=== PATIENT | female | born 1990 | race Caucasian/White ===

== ENCOUNTER 2020-03-17 16:22 | Outpatient (REF) | payer OTHER, SELFPAY ==
--- NOTE | 2020-03-17 | XR_ITS ---
EXAMINATION: XR CHEST CLINICAL INFORMATION: Shortness of breath. Covid positive. COMPARISON: Chest x-ray 02/01/2018 TECHNIQUE: 2 views of the chest were obtained. FINDINGS: No significant abnormality is noted involving the heart, lungs, mediastinum, bony thorax or soft tissues. XR/XR chest 2V IMPRESSION: Unremarkable examination.
== END 2020-03-17 16:23 | disposition home or self-care (01) ==
LOC: HO.HMGCX 16:22
PROVIDERS: PCP Internal Medicine; Visit Provider Internal Medicine
DX: R06.02 Shortness of breath (principal)
CPT/HCPCS: 71046

== ENCOUNTER 2020-06-09 11:26 | Outpatient (REF) | payer OTHER, SELFPAY ==
--- NOTE | 2020-06-09 | US_ITS ---
EXAMINATION: US RETROPERITONEAL COMPLETE (RENAL) CLINICAL INFORMATION: Frequency of micturition. COMPARISON: None TECHNIQUE: Real-time imaging of the kidneys and bladder. FINDINGS: RIGHT KIDNEY: 9.5 x 4.4 x 5.6 cm (SAG x AP x TRV). The kidney is normal in size, contour, and echogenicity. Renal cortical thickness is normal. No calculi or focal parenchymal lesions. No hydronephrosis. LEFT KIDNEY: 10.4 x 5.9 x 5.4 cm (SAG x AP x TRV). The kidney is normal in size, contour, and echogenicity. Renal cortical thickness is normal. No calculi or focal parenchymal lesions. No hydronephrosis. BLADDER: Well distended and normal. Bilateral ureteral jets are demonstrated. Prevoid bladder volume is 559 mL. Postvoid bladder volume is 26 mL. ADDITIONAL FINDINGS: Incidental finding of a small left ovarian cysts measuring 2.4 x 2.5 x 2.3 cm. US/US retroperitoneal comp IMPRESSION: Unremarkable bilateral renal ultrasound. Small left ovarian 2.5 cm cyst.
== END 2020-06-09 11:27 | disposition home or self-care (01) ==
LOC: HO.HMGCX 11:26
PROVIDERS: Visit Provider Internal Medicine
DX: R35.0 Frequency of micturition (principal); R39.9 Unspecified symptoms and signs involving the genitourinary system
CPT/HCPCS: 76770

== ENCOUNTER 2020-06-14 08:34 | Outpatient (REF) | payer OTHER, SELFPAY ==
--- NOTE | ~2020-06-14 | US_ITS ---
EXAMINATION: PELVIC ULTRASOUND CLINICAL INFORMATION: Pelvic pain COMPARISON: Previous exam August 2018 TECHNIQUE: Transabdominal and transvaginal pelvic ultrasound was performed. Transvaginal exam was performed for better visualization of the uterus and ovaries. FINDINGS: The uterus is anteverted and measures 8.5 x 3.7 x 4.7 cm in dimension. There is an IUD in the uterus in satisfactory position. This does not appear thickened. No focal uterine lesion is seen. Cervix is unremarkable. The right ovary is upper normal in size and measures 3.6 x 2.7 x 2.9 cm, volume 15 mL. The left ovary is enlarged, measures 4 x 3.3 x 4.1 cm, volume 29 mL, and contains a 3.5 x 3 x 3.3 cm simple cyst. There is no fluid in the pelvis. US/US transvaginal IMPRESSION: IUD in the uterus in satisfactory position. 3.5 x 3 x 3.3 cm simple left ovarian cyst.
--- NOTE | ~2020-06-14 | US_ITS ---
EXAMINATION: PELVIC ULTRASOUND CLINICAL INFORMATION: Pelvic pain COMPARISON: Previous exam August 2018 TECHNIQUE: Transabdominal and transvaginal pelvic ultrasound was performed. Transvaginal exam was performed for better visualization of the uterus and ovaries. FINDINGS: The uterus is anteverted and measures 8.5 x 3.7 x 4.7 cm in dimension. There is an IUD in the uterus in satisfactory position. This does not appear thickened. No focal uterine lesion is seen. Cervix is unremarkable. The right ovary is upper normal in size and measures 3.6 x 2.7 x 2.9 cm, volume 15 mL. The left ovary is enlarged, measures 4 x 3.3 x 4.1 cm, volume 29 mL, and contains a 3.5 x 3 x 3.3 cm simple cyst. There is no fluid in the pelvis. US/US pelvic complete IMPRESSION: IUD in the uterus in satisfactory position. 3.5 x 3 x 3.3 cm simple left ovarian cyst.
== END 2020-06-14 08:35 | disposition home or self-care (01) ==
LOC: HO.HMGCX 08:34
PROVIDERS: PCP Internal Medicine; Visit Provider Emergency Medicine
DX: R10.2 Pelvic and perineal pain (principal)
CPT/HCPCS: 76830; 76856

== ENCOUNTER → 2021-10-26 08:44 | Outpatient (BNVA) | payer OTHER, SELFPAY | PROVIDERS: PCP Internal Medicine; Visit Provider Advanced Practice Midwife | DX: Z30.432 Encounter for removal of intrauterine contraceptive device (principal); Z31.69 Encounter for other general counseling and advice on procreation | CPT/HCPCS: 58301 ==

== ENCOUNTER 2021-12-19 09:07 | Outpatient (REF) | payer OTHER, SELFPAY | END 2021-12-19 09:08 | disposition home or self-care (01) | LOC: HO.LAB 09:07 | PROVIDERS: Visit Provider Advanced Practice Midwife | DX: Z01.419 Encounter for gynecological examination (general) (routine) without abnormal findings (principal) | CPT/HCPCS: 88142 ==

== ENCOUNTER → 2022-03-29 08:02 | Outpatient (BNVA) | payer OTHER, SELFPAY | PROVIDERS: Visit Provider Obstetrics & Gynecology | DX: N83.9 Noninflammatory disorder of ovary, fallopian tube and broad ligament, unspecified (principal) | CPT/HCPCS: 99212 ==

== ENCOUNTER 2022-08-10 15:02 | Outpatient (REF) | payer OTHER, SELFPAY ==
[2022-08-10 15:21] LABS: MANUAL DIFF FLAG NO
[2022-08-10 15:36] LABS: Basophils Percent Auto 0.4 % (0-2); Eosinophils Absolute Auto 0.2 X10*3/uL (0.0-0.4); Eosinophils Percent Auto 2.4 % (0-4); Hematocrit 40.2 % (37.0-47.0); Hemoglobin 13.7 g/dl (12.0-16.0); Imm Gran Abs Auto 0.03 X10*3/uL (0.00-0.03); Imm Gran Pct Auto 0.4 % (0.0-0.4); Lymphocytes Absolute Auto 1.4 X10*3/uL (1.2-4.9); Lymphocytes Percent Auto 19.1 % (20-40); Mean Corpuscular HGB Conc 34.1 g/dl (31.0-35.0); Mean Corpuscular Hemoglobin 32.1 pg (27.0-33.0); Mean Corpuscular Volume 94.1 fL (80.0-98.0); Mean Platelet Volume 11.4 fL (9.4-12.3); Monocytes Absolute Auto 0.4 X10*3/uL (0.1-1.2); Monocytes Percent Auto 5.1 % (2-11); Neutrophils Absolute Auto 5.2 x10*3/uL (2.0-8.3); Neutrophils Percent Auto 72.6 % (45-73); Platelet Count 152 X10*3/uL (160-400); Red Blood Count 4.27 X10*6/uL (4.20-5.50); Red Cell Distribution Width 11.9 % (11.0-16.0); White Blood Count 7.2 X10*3/uL (4.8-10.8)
[2022-08-10 16:05] LABS: Alanine Aminotransferase 27 U/L (0-31); Albumin Level 4.2 g/dL (3.5-5.0); Alkaline Phosphatase 55 U/L (39-117); Aspartate Amino Transferase 25 U/L (5-31); Bilirubin Direct < 0.2 mg/dL (0.0-0.5); Bilirubin Total 0.4 mg/dL (0.0-1.0); C Reactive Protein 0.11 mg/dL (< or = 0.50); Total Protein 6.5 g/dL (6.5-8.0)
[2022-08-10 16:19] LABS: Erythrocyte Sedimentation Rate 2 MM/HR (0-20)
[2022-08-10 16:21] LABS: TSH reflex Free T4 0.99 uIU/mL (0.32-4.0)
[2022-08-13 02:04] LABS: Immunoglobulin A 193 mg/dL (47-310)
[2022-08-16 15:24] LABS: Endomysial IgA Antibody Negative (Negative)
[2022-08-17 23:59] LABS: Gliadin Deamidated IgA Ab 1.2 U/mL; Gliadin Deamidated IgG Ab 15.1 U/mL; Transglutaminase Ab IgG <1.0 U/mL; Transglutaminase IgA 2.9 U/mL
== END 2022-08-10 15:03 | disposition home or self-care (01) ==
LOC: HO.LAB 15:02
PROVIDERS: PCP Internal Medicine; Visit Provider Internal Medicine
DX: R19.7 Diarrhea, unspecified (principal); K62.5 Hemorrhage of anus and rectum
CPT/HCPCS: 36415; 80076; 82784; 84443; 85025; 85652; 86140; 86231; 86258; 86364

== ENCOUNTER 2022-08-14 12:43 | Day surgery (SDC) | payer OTHER, SELFPAY ==
[2022-08-14 13:03] VITALS: BMI 24.5
[2022-08-14 13:10] LABS: UPreg QC Valid YES; Urine Pregnancy NEGATIVE (NEGATIVE)
[2022-08-14] MEDS: Lactated Ringers 1,000 ML 50 ML IVCONT (13:10)
[2022-08-14 13:17] VITALS: BP 105/60; PULSE 80; RESP 18; TEMP 36.7; O2SAT 97
--- NOTE | 2022-08-14 14:17 | HO.ANESPROP2 ---
[facility] Active Problems Active Problems: All Active Problems (Updated 03/29/22 @ 08:22 by Oliver Juarez MD) Problems with ovulation (Acute) Thrombocytopenia (Acute) Past Medical History Medical History History of dysuria History of shingles History of urinary frequency Hx of acne Hx of acute cystitis Hx of eczema Hx of low back pain Hx of migraines Hx of thrombocytopenia Family History Family History Mother Hx of breast cancer Hx of cancer of lung Maternal Grandfather History of heart attack Maternal Aunt History of heart attack History of diabetes mellitus Family history of problems with anesthesia: No Surgical History Surgical History Hx of hand surgery History of Problems with Anesthesia: No Social History Social History Household Members Other:: fiance Housing: Apartment Alcohol intake: current Alcohol intake frequency: holidays/special occasions only Alcohol type: wine and hard liquor Patient Tobacco Use Status: Never used Tobacco Are you DNR?: No Advance Directives: No Advance Directives Information Provided: Yes Nutrition Risks: No Nutritional Risk FDLMP: about two weeks ago Current occupational status: employed 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 Sexual orientation: Straight/Heterosexual Gender identity: Female Meds Allergies Allergy/AdvReac Type Severity Reaction Status Date / Time Seasonal Allergies Allergy Mild Sneezing Verified 03/29/22 08:09 amoxicillin [AMOXICILLIN] Allergy Unknown HIVES Verified 03/29/22 08:09 penicillin G [PENICILLIN G] Allergy Unknown HIVES Verified 03/29/22 08:09 penicillin V Allergy Unknown hives Verified 03/29/22 08:09 Penicillins [PENICILLINS] Allergy Unknown RASH Verified 03/29/22 08:09 Sulfa (Sulfonamide AdvReac Unknown vomiting Verified 03/29/22 08:09 Antibiotics) Active Medications: Current Medications Sodium Biphosphate/Sodium Phosphate (Sodium Phosphate,[place]-Dibasic 133 Ml Enema) 133 ml SD ONCE PRN PRN Reason: Poor Colonoscopy Prep Results Home Medications Medication Instructions Recorded Confirmed Last Taken Type hydrocortisone 1 % topical cream appl 07/02/20 07/02/20 Unknown History (Cortisone (hydrocortisone)) loratadine 10 mg tablet 10 mg PO DAILY 07/02/20 07/02/20 Unknown History omeprazole 20 mg capsule,delayed 20 mg PO DAILY 08/11/22 08/11/22 Unknown History release sertraline 50 mg tablet 50 mg PO DAILY 08/11/22 08/11/22 Unknown History Exam Exam Date and Time: August 14, 2022 1417 Height,Weight and Vital Signs: Height 5 ft 4 in Weight 64.957 kg Last Vital Signs Temp 98.1 F 08/14/22 13:17 Pulse 80 08/14/22 13:17 Resp 18 08/14/22 13:17 BP 105/60 08/14/22 13:17 Pulse Ox 97 08/14/22 13:17 O2 Del Method Room Air 08/14/22 13:17 Pertinent Lab Results Pertinent Lab Results: Laboratory Tests 08/14/22 13:00 Urine Test NEGATIVE Airway Mallampati Class: II TM Dist: >3cm Neck ROM: Full Heart: rrr Lungs: cta Assessment and Plan Assessment Anesthesia Assessment: Anesthesia Plan Discussed and Chart Reviewed Final Anesthetic Review Family History of Problems with Anesthesia: No History of Problems with Anesthesia: No NPO: Yes ASA Class: II Final Preanesthetic Review: No Changes in Pt Med Stat, Meds/Allgs Chart Reviewed and Consent Obtained/Reviewed Patient Risk: Intermediate Procedure Risk: Intermediate Anesthetic Plan Anesthetic Plan: MAC: Disposition: Standard PACU
[2022-08-14 15:38] VITALS: BP 108/66; PULSE 80; RESP 16; TEMP 37; O2SAT 99
--- NOTE | 2022-08-14 15:41 | PM.OP ---
Brief Operative Note Date of Service: 08/14/22 Pre-op diagnosis: GERD, Diarrhea, Rectal bleeding Post-op diagnosis: other (Minimal hiatal hernia, R/O celiac disease, colon polyp, R/O microscopic colitis) Procedure: EGD with biopsies, Colonoscopy to the cecum and TI with biopsies, and hot snare polypectomy with placement of 2 Resolution clips between 15-20cm. Surgeon: Nadir Ayon Anesthesia: MAC Was an Wet Milling Wheel Operator used for this Procedure?: No Estimated blood loss (mL): 2.0 Pathology: other (A. Descending duodenum B. Gastric antrum C. EG Junction at 38cm D. Terminal ileum E. Ascending colon F. Descending colon) Condition: stable Disposition: PACU
[2022-08-14 15:53] VITALS: BP 114/72; PULSE 89; RESP 16; TEMP 37; O2SAT 100
--- NOTE | 2022-08-15 01:47 | OP_ITS ---
DATE OF SERVICE: 08/14/2022 SURGEON: Nadir Ayon MD INDICATIONS: The patient presents for evaluation of gastroesophageal reflux, diarrhea, and hematochezia. Full consent has been obtained from her for this, including risks of bleeding and perforation. PREOPERATIVE DIAGNOSIS: POSTOPERATIVE DIAGNOSIS: PROCEDURE PERFORMED: ESTIMATED BLOOD LOSS: COMPLICATIONS: ANESTHESIA: Medication used, monitored anesthesia care. ASSISTANTS: SPECIMENS: PREOPERATIVE DIAGNOSES: Gastroesophageal reflux, abdominal pain, diarrhea, hematochezia. POSTOPERATIVE DIAGNOSES: Gastroesophageal reflux, abdominal pain, diarrhea, hematochezia, minimal hiatal hernia, rule out celiac disease, colon polyp, rule out microscopic colitis, internal hemorrhoids. PROCEDURES PERFORMED: Esophagogastroduodenoscopy with biopsies, and colonoscopy to the cecum and terminal ileum with biopsies, and hot snare polypectomy with placement of two Resolution clips. DESCRIPTION OF PROCEDURE: The patient was placed in the left lateral decubitus position. The Olympus video gastroscope was passed in the posterior oropharynx and upper esophagus under direct vision. The scope was passed slowly to the distal esophagus. The gastroesophageal junction had some very minimal irregularity, but no evidence of esophagitis nor Kimball's esophagus. The scope entered the stomach. There is a minimal hiatal hernia. The scope was advanced to the pylorus and the duodenum was cannulated to the descending portion. The duodenum including the bulb appeared normal without mass or ulceration. Biopsies were obtained from the second and third portions of duodenum. The scope was withdrawn back in the stomach. The gastric antrum and body appeared normal with good peristalsis. Biopsies were obtained from the antrum. The scope was retroflexed visualizing the proximal stomach carefully which appeared normal, without any sign of mass or ulceration. The scope was straightened and withdrawn back in the esophagus. Biopsies were obtained at the EG junction at 38 cm. Proximal to that, the esophageal mucosa appeared normal. The scope was withdrawn from the patient. She was turned around for the colonoscopy. The digital rectal exam revealed no abnormalities. The Olympus video pediatric colonoscope was entered into the rectum and advanced easily to the cecum. Once in the cecum, I did identify normal appearing cecal pouch with the appendiceal orifice and a normal appearing ileocecal valve. The terminal ileum was cannulated and appeared normal. Biopsies were obtained. The scope was withdrawn back in the colon. The entire cecum and ileocecal valve appeared normal. The scope was slowly withdrawn assessing all mucosal surfaces carefully. Preparation was excellent. I did not visualize any sign of colitis nor angiodysplasia. Random biopsies were obtained in the ascending and descending colon. At between 15 and 20 cm was a flat, but raised approximately 10 to 12 mm polyp which appeared to be probably hyperplastic or possibly serrated. This was removed by hot snare polypectomy, but basically the tissue was cauterized and therefore no specimen was obtained. Two Resolution clips were applied with good deployment and good hemostasis. No other polyps were visualized in the colon or rectum. In the rectum, the scope was retroflexed visualizing some minimal internal hemorrhoids, but no other pathology. The rectal mucosa appeared normal. The scope was straightened and withdrawn from the patient. She tolerated both procedures well and was returned to the recovery area in stable condition. IMPRESSION: 1. Minimal hiatal hernia. 2. Rule out celiac disease. 3. Colon polyp. 4. Rule out microscopic colitis. 5. Internal hemorrhoids. PLAN: The results of the biopsies will be checked. She was advised to continue her omeprazole for the reflux. She was advised to use dicyclomine as needed for abdominal cramps and discomfort. She was advised to see me by the Fall for a followup visit. She was advised not to use any aspirin nor NSAIDs for one week. She does have an abdominal ultrasound scheduled for later this month and she was reminded to keep that appointment. I would recommend another colonoscopy in 10 years. MD MEL Aiken/KETURAH / [id number] MTDD
== END 2022-08-14 16:25 | disposition home or self-care (01) ==
PROVIDERS: Anesthesiology; PCP Internal Medicine; Visit Provider Internal Medicine
PROC: (CPT 45385; principal; 2022-08-14 14:00)
DX: K92.1 Melena (principal); R19.7 Diarrhea, unspecified; R10.13 Epigastric pain; K63.5 Polyp of colon; K64.8 Other hemorrhoids; K21.9 Gastro-esophageal reflux disease without esophagitis; K44.9 Diaphragmatic hernia without obstruction or gangrene
CPT/HCPCS: 45385; 43239; 81025; 88305; 88342

== ENCOUNTER 2022-12-13 09:02 | Outpatient (AMB) | payer OTHER, SELFPAY ==
--- NOTE | 2022-12-13 09:08 | A.OFFVIS_ITS ---
Intake Vital Signs 12/13/22 09:11 Height 5 ft 4 in Weight 143 lb BMI 24.5 BP 120/80 Intake Visit Reasons: trouble getting Allergies Seasonal Allergies Allergy (Mild, Verified 12/13/22 09:12) Sneezing amoxicillin [AMOXICILLIN] Allergy (Unknown, Verified 12/13/22 09:12) HIVES penicillin G [PENICILLIN G] Allergy (Unknown, Verified 12/13/22 09:12) HIVES penicillin V Allergy (Unknown, Verified 12/13/22 09:12) hives Penicillins [PENICILLINS] Allergy (Unknown, Verified 12/13/22 09:12) RASH Sulfa (Sulfonamide Antibiotics) Adverse Reaction (Unknown, Verified 12/13/22 09:12) vomiting Is last menstrual period known: Yes Last menstrual period: 12/03/22 HPI HPI Comments History of Present Illness Details Presenting complaining of inability to conceive for the last year, has been checking her LH ovulation surge and has been ovulating last 10 months. Menstrual cycles are regular with no dysmenorrhea. The patient's partner history of retrograde ejaculation PFSH Medical History History of dysuria History of shingles History of urinary frequency Hx of acne Hx of acute cystitis Hx of eczema Hx of low back pain Hx of migraines Hx of thrombocytopenia Surgical History Hx of hand surgery Family History Mother Hx of breast cancer Hx of cancer of lung Maternal Grandfather History of heart attack Maternal Aunt History of heart attack History of diabetes mellitus Social History Household Members Other:: fiance Housing: Apartment Alcohol intake: current Alcohol intake frequency: holidays/special occasions only Alcohol type: wine and hard liquor Patient Tobacco Use Status: Never used Tobacco Current occupational status: employed 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 Sexual orientation: Straight/Heterosexual Gender identity: Female Female Reproductive History Menstrual Age of Menarche: 16 Date of last menstrual period: 12/03/22 Review of Systems Const All systems reviewed & are unremarkable except as noted in HPI and below Reports as per HPI and Reports no additional complaints GI Reports no additional complaints Reports no additional complaints Physical Exam Vital Signs: Last Vital Signs BP 120/80 12/13/22 09:11 BMI result Body Mass Index 24.5 Assessment & Plan Assessment & Plan (1) Infertility, female: Code(s): N97.9 - Female infertility, unspecified Plan: Discussed with the patient the patient causes of infertility including male and female factors, the workup including LH ovulation test which has been done over the last few months and positive, semen analysis for the patient's partner order given to the patient and will schedule day 8 hysterosalpingogram. All questions answered, the patient verbalized understanding Orders: Orders [place] hysterosalpingography Today N97.9 - Female infertility, unspecified Coding Level of Care Code Est Pt Level 3 (56468) Diagnoses Infertility, female N97.9
[2022-12-13 09:11] VITALS: BP 120/80; BMI 24.5
== END 2022-12-13 09:37 | disposition home or self-care (01) ==
LOC: HO.HWS 09:02
PROVIDERS: PCP Internal Medicine; Visit Provider Obstetrics & Gynecology
DX: N97.9 Female infertility, unspecified (principal)
CPT/HCPCS: 99213

== ENCOUNTER → 2022-12-13 09:02 | Outpatient (BNVA) | payer OTHER, SELFPAY | PROVIDERS: PCP Internal Medicine; Visit Provider Obstetrics & Gynecology | DX: N97.9 Female infertility, unspecified (principal) | CPT/HCPCS: 99212 ==

== ENCOUNTER 2023-01-17 13:50 | Outpatient (AMB) | payer OTHER, SELFPAY ==
[2023-01-17 13:52] VITALS: BP 112/66; BMI 24.2
--- NOTE | 2023-01-17 13:52 | A.OFFVIS_ITS ---
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 Intake Note: no concerns Director Operations Broadcast Required: No Information Interpreted: non-clinical & clinical Shop Blacksmith: Shop Blacksmith Present (Veronica Jeff MONICA) Accompanied by: Self / Same As Patient Allergies Seasonal Allergies Allergy (Mild, Verified 01/17/23 13:55) Sneezing amoxicillin [AMOXICILLIN] Allergy (Unknown, Verified 01/17/23 13:55) HIVES penicillin G [PENICILLIN G] Allergy (Unknown, Verified 01/17/23 13:55) HIVES penicillin V Allergy (Unknown, Verified 01/17/23 13:55) hives Penicillins [PENICILLINS] Allergy (Unknown, Verified 01/17/23 13:55) RASH Sulfa (Sulfonamide Antibiotics) Adverse Reaction (Unknown, Verified 01/17/23 13:55) vomiting Is last menstrual period known: Yes Last menstrual period: 12/29/22 HPI HPI Comments History of Present Illness Details Presenting for annual exam. No complaints. Partner semen analysis came back with the following abnormalities: Low volume, low percentage of motile sperms, low percentage of vitals per parents, and a low normal morphology Last Pap was in 12/26 was negative, no HPV done PFSH Medical History History of shingles Hx of thrombocytopenia Hx of low back pain History of dysuria Hx of acne History of urinary frequency Hx of acute cystitis Hx of migraines Hx of eczema Surgical History Hx of hand surgery Family History Mother Hx of breast cancer Hx of cancer of lung Maternal Grandfather History of heart attack Maternal Aunt History of heart attack History of diabetes mellitus Social History Household Members Other:: fiance Housing: Apartment Alcohol intake: current Alcohol intake frequency: holidays/special occasions only Alcohol type: wine and hard liquor Patient Tobacco Use Status: Never used Tobacco Current occupational status: employed 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 Sexual orientation: Straight/Heterosexual Gender identity: Female Female Reproductive History Menstrual Age of Menarche: 16 Date of last menstrual period: 12/29/22 Total pregnancies: 0 Date of last pap smear: 12/19/21 Review of Systems Const All systems reviewed & are unremarkable except as noted in HPI and below Card Reports as per HPI Resp Reports as per HPI GI Reports as per HPI and Reports no additional complaints Reports as per HPI Physical Exam Const General: cooperative, healthy appearing and comfortable Chest Chest palpation & inspection: normal inspection of the chest and normal palpation of entire chest wall Breast/axilla inspection: normal inspection of the breasts and normal inspection of the axillae Breast/axilla palpation: normal palpation of the breasts, normal palpation of the axillae and no axillary lymphadenopathy Resp Effort & Inspection: normal respiratory effort Auscultation: clear to auscultation bilaterally Percussion: percussion normal Cardio Palpation: normal PMI Rate: regular rate Rhythm: regular rhythm Heart sounds: no murmurs and no rubs Peripheral pulses: Peripheral pulses 2+ throughout GI Inspection: Yes normal to inspection Palpation (GI): Soft to palpation, nontender, no guarding, not rigid and No hepatosplenomegaly present Percussion: Yes normal to percussion Auscultation: normal bowel sounds Rectal Exam - Female: deferred General: Yes bladder normal to palpation External Female Exam: No lesion Speculum Exam - Vagina: normal appearance of the vagina, normal palpation, normal vaginal discharge and not erythematous Speculum Exam - Cervix: normal appearance of the cervix and normal palpation Bimanual exam- vagina & uterus: normal bimanual exam, normal palpation, uterine size normal, bladder normal to palpation, consistency normal and normal palpation Bimanual Exam- Adnexa, other: normal adnexae, no masses and no tenderness Assessment & Plan Assessment & Plan (1) Well woman exam: Code(s): Z01.419 - Encounter for gynecological examination (general) (routine) without abnormal findings Plan: Cotesting not indicated this year. Counseled the patient about the recommended dietary allowance of 1000 mg of Calcium & 600 IU of vitamin D. The patient was instructed to perform monthly self-breast exams and to schedule an annual exam in a year; All questions answered and the patient verbalized understanding. Instructed the patient to schedule annual exam in a year (2) Infertility, female: Code(s): N97.9 - Female infertility, unspecified Plan: Discussed with patient the results of partner's semen analysis, recommended urology visit, the patient partner has already an appointment with Urology, hysterosalpingogram is scheduled in 2 weeks, and will refer the patient to reproductive endocrinology [facility]. All questions answered, the patient verbalized understanding agreed with the plan. Orders: Referrals Reproductive Endocrinology N97.9 - Female infertility, unspecified Coding Level of Care Code Est Pt Prev Care 18-39y(22700) Diagnoses Well woman exam Z01.419 Infertility, female N97.9
== END 2023-01-17 14:54 | disposition home or self-care (01) ==
PROVIDERS: PCP Internal Medicine; Visit Provider Obstetrics & Gynecology
DX: Z01.419 Encounter for gynecological examination (general) (routine) without abnormal findings (principal); N97.9 Female infertility, unspecified
CPT/HCPCS: 99395

== ENCOUNTER → 2023-01-17 13:50 | Outpatient (BNVA) | payer OTHER, SELFPAY | PROVIDERS: PCP Internal Medicine; Visit Provider Obstetrics & Gynecology ==

== ENCOUNTER 2023-02-14 08:46 | Outpatient (REF) | payer OTHER, SELFPAY | END 2023-02-14 08:47 | disposition home or self-care (01) | LOC: HO.MRI 08:46 | PROVIDERS: PCP Internal Medicine; Visit Provider Family Medicine | DX: G43.111 Migraine with aura, intractable, with status migrainosus (principal) | CPT/HCPCS: 70553; A9585 ==

== ENCOUNTER 2023-03-07 09:29 | Outpatient (REF) | payer OTHER, SELFPAY ==
--- NOTE | ~2023-03-07 | US_ITS ---
EXAMINATION: US ABDOMEN COMPLETE CLINICAL INFORMATION: Epigastric pain. COMPARISON: Ultrasound kidneys and bladder 06/09/2020. TECHNIQUE: Real-time imaging of the abdominal viscera. FINDINGS: PANCREAS: Normal. ABDOMINAL AORTA: The proximal, mid, and distal segments are normal in caliber. INFERIOR VENA CAVA: Visualized portions are normal. LIVER: Normal. The liver is normal in size. The liver contour is normal. Parenchymal echogenicity is normal. No focal hepatic lesion. There is no intrahepatic biliary duct dilatation seen. GALLBLADDER: Normal. The gallbladder is physiologically distended without evidence of stones, sludge, polyps, wall thickening or pericholecystic fluid. COMMON BILE DUCT: Normal in caliber measuring 0.5 cm in diameter. RIGHT KIDNEY: No hydronephrosis or focal parenchymal lesions. The kidney measures 9.4 cm in maximum dimension. At the interpolar aspect, a 5 mm nonobstructing calculus is seen. LEFT KIDNEY: Normal. No hydronephrosis. No renal calculi or focal parenchymal lesions. The kidney measures 9.9 cm in maximum dimension. SPLEEN: Normal. The spleen measures 8.3 cm in maximum dimension. FREE FLUID: None. US/US abdomen complete IMPRESSION: A 5 mm nonobstructing right renal calculus is seen. The examination is otherwise unremarkable.
== END 2023-03-07 09:30 | disposition home or self-care (01) ==
LOC: HO.US 09:29
PROVIDERS: PCP Internal Medicine; Visit Provider Internal Medicine
DX: R10.13 Epigastric pain (principal)
CPT/HCPCS: 76700

== ENCOUNTER 2023-03-27 13:02 | Outpatient (AMB) | payer OTHER, SELFPAY ==
--- NOTE | 2023-03-27 13:14 | A.OFFVIS_ITS ---
Intake Intake Visit Reasons: Hysterosalpingogram/ Radiology department Allergies Seasonal Allergies Allergy (Mild, Verified 01/17/23 13:55) Sneezing amoxicillin [AMOXICILLIN] Allergy (Unknown, Verified 01/17/23 13:55) HIVES penicillin G [PENICILLIN G] Allergy (Unknown, Verified 01/17/23 13:55) HIVES penicillin V Allergy (Unknown, Verified 01/17/23 13:55) hives Penicillins [PENICILLINS] Allergy (Unknown, Verified 01/17/23 13:55) RASH Sulfa (Sulfonamide Antibiotics) Adverse Reaction (Unknown, Verified 01/17/23 13:55) vomiting PFSH Medical History History of shingles Hx of thrombocytopenia Hx of low back pain History of dysuria Hx of acne History of urinary frequency Hx of acute cystitis Hx of migraines Hx of eczema Surgical History Hx of hand surgery Family History Mother Hx of breast cancer Hx of cancer of lung Maternal Grandfather History of heart attack Maternal Aunt History of heart attack History of diabetes mellitus Household Members Other:: fiance Housing: Apartment Alcohol intake: current Alcohol intake frequency: holidays/special occasions only Alcohol type: wine and hard liquor Patient Tobacco Use Status: Never used Tobacco Current occupational status: employed 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 Time-out for HSG procedure was done. Speculum was placed in patient's vagina, vagina and cervix were prepped with betadine. A tenaculum was applied to the cervix. A primed 5 Welsh HSG catheter was introduced into the cervix and balloon inflated. Speculum was removed. Contrast was injected under flouroscopy revealing a normal cavity and bilateral fill and spill. All instruments were removed from vagina and aftercare instructions were given. Instructions given to patient to call in case of fever above 100.4 severe abdominal/ pain, nausea and/or vomiting, heavy vaginal bleeding. This note was generated with a voice recognition program. Some errors may have been overlooked during the review of this note. Sometimes these errors may affect the content or meaning of a given sentence. [facility] [place] code: [id number] Results AMB Test Urine AMB Test Urine Negative Last Edit by Veronica Jeff CMA on 13:14 Results Reviewed Results Reviewed: Laboratory Last Values Tst Clinic Negative 03/27/23 13:13 Assessment & Plan Assessment & Plan (1) Infertility, female: Code(s): N97.9 - Female infertility, unspecified Orders: Orders AMB HCG Urine Test Today Z32.02 - Encounter for test, result negative [place] hysterosalpingography Today N97.9 - Female infertility, unspecified Coding Level of Care Code Procedure Only Diagnoses Infertility, female N97.9 CPT Codes Hysterosal[place]ography - [facility] [place]PT code: [id number] ([id number])
== END 2023-03-27 14:38 | disposition home or self-care (01) ==
LOC: HO.HWS 13:02
PROVIDERS: PCP Internal Medicine; Visit Provider Obstetrics & Gynecology
DX: N97.9 Female infertility, unspecified (principal); Z32.02 Encounter for pregnancy test, result negative
CPT/HCPCS: 58340

== ENCOUNTER 2023-03-27 13:14 | Outpatient (REF) | payer OTHER, SELFPAY ==
--- NOTE | ~2023-03-27 | FL_ITS ---
EXAMINATION: INJECTION FOR HYSTEROSALPINGOGRAM CLINICAL INFORMATION: Infertility COMPARISON: None available. TECHNIQUE: Intrauterine contrast injection was performed by MANAGER PLAN Dr. Juarez under fluoroscopy with the radiology physician periodicals library assistant present. FINDINGS: On the fluoroscopy images, there is a balloon inflated catheter within the uterine cavity. Initially, reflux resulted in the vagina-gram which demonstrated no abnormality. Positioning of the catheter corrected this problem. Contrast was then seen to opacify both the bilateral fallopian tubes with extravasation seen into the parametrium bilaterally. FLUOROSCOPY TIME: 1 minute 25 seconds DOSE AREA PRODUCT: 707 uGy-m2 (microgray-meter squared) FL/FL hysterosalpingography IMPRESSION: Patent left and right fallopian tubes. No obstruction. This procedure was performed by Panfilo Olvera PA-C, and supervised by Dr. Gottlieb
== END 2023-03-27 13:15 | disposition home or self-care (01) ==
LOC: HO.XRAY 13:14
PROVIDERS: PCP Internal Medicine; Visit Provider Obstetrics & Gynecology
DX: N97.9 Female infertility, unspecified (principal)
CPT/HCPCS: 58340; 74740; 81025

== ENCOUNTER → 2023-03-27 13:17 | Outpatient (BNV) | payer OTHER, SELFPAY | PROVIDERS: PCP Internal Medicine; Visit Provider Radiology Diagnostic Radiology | DX: N97.1 Female infertility of tubal origin (principal) | CPT/HCPCS: 74740 ==

== ENCOUNTER 2023-04-11 10:52 | Outpatient (AMB) | payer OTHER, SELFPAY ==
--- NOTE | 2023-04-11 11:15 | A.OFFVIS_ITS ---
Intake Vital Signs 04/11/23 11:17 BP 118/70 Intake Visit Reasons: follow up Allergies Seasonal Allergies Allergy (Mild, Verified 01/17/23 13:55) Sneezing amoxicillin [AMOXICILLIN] Allergy (Unknown, Verified 01/17/23 13:55) HIVES penicillin G [PENICILLIN G] Allergy (Unknown, Verified 01/17/23 13:55) HIVES penicillin V Allergy (Unknown, Verified 01/17/23 13:55) hives Penicillins [PENICILLINS] Allergy (Unknown, Verified 01/17/23 13:55) RASH Sulfa (Sulfonamide Antibiotics) Adverse Reaction (Unknown, Verified 01/17/23 13:55) vomiting HPI HPI Comments History of Present Illness Details Presenting post hysterosalpingogram for follow-up. The patient's partner and was seen by Urology and was started on Clomid with vitamin-E. The patient has an appointment with the reproductive endocrinology/infertility clinic and [facility] for a consult. No complaints PFSH Medical History History of shingles Hx of thrombocytopenia Hx of low back pain History of dysuria Hx of acne History of urinary frequency Hx of acute cystitis Hx of migraines Hx of eczema Surgical History Hx of hand surgery Family History Mother Hx of breast cancer Hx of cancer of lung Maternal Grandfather History of heart attack Maternal Aunt History of heart attack History of diabetes mellitus Social History Household Members Other:: fiance Housing: Apartment Alcohol intake: current Alcohol intake frequency: holidays/special occasions only Alcohol type: wine and hard liquor Patient Tobacco Use Status: Never used Tobacco Current occupational status: employed 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 Recommended for the patient to follow up with [facility]/infertility for further management. All questions answered, the patient verbalized understanding. Coding Level of Care Code Est Pt Level 3 (79317) Diagnoses Infertility, female N97.9
[2023-04-11 11:17] VITALS: BP 118/70
== END 2023-04-11 12:17 | disposition home or self-care (01) ==
PROVIDERS: PCP Internal Medicine; Visit Provider Obstetrics & Gynecology
DX: N97.9 Female infertility, unspecified (principal)
CPT/HCPCS: 99213

== ENCOUNTER → 2023-04-11 10:52 | Outpatient (BNVA) | payer OTHER, SELFPAY | PROVIDERS: PCP Internal Medicine; Visit Provider Obstetrics & Gynecology | DX: N97.9 Female infertility, unspecified (principal) | CPT/HCPCS: 99212 ==

== ENCOUNTER → 2024-01-03 11:57 | Outpatient (RCR) | payer OTHER, SELFPAY ==
[2020-07-02 09:09] VITALS: BP 110/67; PULSE 68; RESP 12; TEMP 36.7; O2SAT 98; BMI 25.7
--- NOTE | 2020-07-02 09:42 | PM.HEMONCCN ---
Subjective - Subjective Chief complaint: ConsuIt for Thrombocytopenia. Patient: new to practice Consult date: 07/02/20 Requesting Physician: Anibal. Primary Care Provider: Suman Zaidi MD Medical Summary: DIAGNOSIS: Thrombocytopenia. HPI - Consult Narrative Reason for consult: Consult for thrombocytopenia. Narrative: Madina Pedro is a pleasant 30 year old lady, in good general health. She had a bad attack of shingles back in January. Subsequently she was noted to have a low platelet count. I do not have those results however, Her CBC from 06/08/2020: WBC 6.2, HGB 14, HCT 41.4, MCV 3 96.1, PLT 86. She mentions that she and her boyfriend had COVID 19 back in March. In January, she had really bad episode of shingles, involving her left back and leg. ROS: She denies any easy bruising nor systemic bleeding. She does feel rather fatigued. She feels that she gets sick a lot. She denies any fever nor chills. Appetite is good. Her weight is stable. Sometimes she gets migraine headaches. Denies chest pain or trouble breathing. No cough nor sputum. She gets lower abdominal pain. No nausea vomiting nor heartburn. Bowels are working without any gross blood in it. She has increased frequency of micturition. She has lately felt pain in the right lower neck radiating into her upper arm for about 5 days. No other joint pain or muscle pain. Neurological: No complaints. Psychiatry: Depression. Dermatology: History of eczema. Denies any major past medical issues. No major surgeries. Family history: Mom had breast cancer. There is lung cancer diabetes and strokes on maternal side of the family. 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 She is dating. She has no children. Denies smoking. Drinks socially. Review of Systems - Constitutional Reports system reviewed and no additional complaints, except as documented - Eyes Reports system reviewed and no additional complaints, except as documented - ENT Reports system reviewed and no additional complaints, except as documented - Cardiovascular Reports system reviewed and no additional complaints, except as documented - Respiratory Reports no additional respiratory complaints - Gastrointestinal Reports system reviewed and no additional complaints, except as documented - Genitourinary Reports no additional female genitourinary complaints - Musculoskeletal Reports system reviewed and no additional complaints, except as documented - Integumentary/Breasts Skin/Breast: Reports no additional skin complaints - Neurologic Reports system reviewed and no additional complaints, except as documented - Psychiatric Reports system reviewed and no additional complaints, except as documented - Endocrine Reports no additional endocrine complaints - Hematologic/Lymphatic Reports system reviewed and no additional complaints, except as documented - Allergic/Immunologic Reports system reviewed and no additional complaints, except as documented [facility] Medical History: Medical History (Last Updated 07/02/20 @ 15:45 by Erica Mcclain) History of dysuria History of shingles History of urinary frequency Hx of acne Hx of acute cystitis Hx of eczema Hx of low back pain Hx of migraines Hx of thrombocytopenia Functional capacity: independent ambulation Patient : No Family History: Family History (Last Updated 07/02/20 @ 09:18 by Erica Mcclain) Mother Hx of breast cancer Hx of cancer of lung Maternal Grandfather History of heart attack Maternal Aunt History of heart attack History of diabetes mellitus Social History: Social History (Last Updated 07/02/20 @ 09:13 by Erica Mcclain) Alcohol History: Alcohol intake: current Alcohol History Details: Alcohol intake frequency: holiday/special occasion Alcohol type: wine Alcohol type: hard liquor Substance Use History: Use of substances other than those prescribed or required for medical reasons: No Nutrition Assessment: Patient : No Home Medications and Allergies Home Medications Medication Instructions Recorded Confirmed Type hydrocortisone [Cortisone appl 07/02/20 07/02/20 History (hydrocortisone)] levonorgestrel [Mirena] INTRAUTERINE 07/02/20 07/02/20 History loratadine 10 mg PO DAILY 07/02/20 07/02/20 History Allergies Allergy/AdvReac Type Severity Reaction Status Date / Time Seasonal Allergies Allergy Mild Sneezing Verified 07/02/20 08:41 amoxicillin [AMOXICILLIN] Allergy Unknown HIVES Unverified 01/22/20 18:21 penicillin G [PENICILLIN G] Allergy Unknown HIVES Unverified 01/22/20 18:21 penicillin V Allergy Unknown hives Verified 01/20/19 00:00 Penicillins [PENICILLINS] Allergy Unknown RASH Unverified 01/22/20 18:21 Sulfa (Sulfonamide AdvReac Unknown vomiting Verified 01/20/19 00:00 Antibiotics) Physical Exam Vital signs: Vital Signs Temp 98.1 F 07/02/20 09:09 Pulse 68 07/02/20 09:09 Resp 12 07/02/20 09:09 BP 110/67 07/02/20 09:09 Pulse Ox 98 07/02/20 09:09 Intake & Output 07/01/20 07/02/20 07/02/20 18:59 06:59 18:59 Other: Weight 68 kg [place] Weight in Grams 16437 Weight 68 kg - Constitutional Present: no acute distress, mild distress - Routine HEENT Exam Head: Present: normal inspection - Routine Neck Exam Present: supple - Routine Respiratory Exam Present: CTAB - Routine Cardiovascular Exam Cardiovascular: Present: RRR, S1, S2 - Routine Abdominal Exam Present: normal bowel sounds, nontender - Routine Rectal Exam Patient deferred: digital exam - Routine Skin Exam Present: intact - Routine Neurological Exam Present: alert, oriented X3 - Detailed Neurological Exam: Coma Scale Eye Opening: Spontaneous (4) Verbal Response: Oriented (5) - Routine Psychiatric Exam Present: normal mood Hem/Onc Consult Result - Labs CBC & Chem 7: 07/02/20 09:45 07/02/20 09:45 Assessment and Plan (1) Thrombocytopenia Status: Acute This is a pleasant 30-year-old lady, with thrombocytopenia dating back to about 6 months according to her. She had labs drawn back in 2019 at that time her platelets were in the normal range. DIFFERENTIAL DIAGNOSIS: 1. INFECTION RELATED: 1. A viral infection: She did have herpes zoster infection back in January. Other possibilities include hepatitis versus HIV. 2. DRUG-INDUCED: She is not on any medication that could be implicated. 3. COLLAGEN VASCULAR DISORDER: Rheumatoid arthritis versus lupus. 4. ITP: This is most likely. 5. MYELO INFILTRATIVE DISORDER: Myelodysplastic syndrome, lymphoma or multiple myeloma: However no clinical features to suggest it. Her white count and platelets are normal. That is reassuring. PLAN: I will proceed with further evaluation. Will recheck her CBC and a manual diff. Check the hepatitis profile and HIV:WNL. Check RA and MEGA: Negative. Check LDH: 174 and an SIEP: WNL. Will follow the platelet count over time. If it drops will consider a bone marrow exam for further evaluation. Will treat if the platelets drop below 50. In the meantime she was advised not to take aspirin and nonsteroidals. She will return in 1 month for a follow-up visit. She had platelet clumping reported. Platelet count is still 144,000. That is good news. She will return on Sunday to have platelets checked in a blue top tube. Thank you, .
--- NOTE | 2020-07-02 09:57 | MHC.HEMONCMA ---
Patient present for low platelet level consult. History was reviewed and patient had labs drawn.
[2020-07-02 10:13] LABS: MANUAL DIFF FLAG SCAN; PLT CLUMP 1; Red Cell Distribution Width 11.9 % (11.0-16.0); SCAN SMEAR FLAG 1
[2020-07-02 10:14] LABS: Basophils Percent Auto 0.9 % (0-2); Eosinophils Absolute Auto 0.1 X10*3/uL (0.0-0.4); Eosinophils Percent Auto 2.8 % (0-4); Hematocrit 44.9 % (37-47); Hemoglobin 14.8 g/dl (12.0-16.0); Imm Gran Abs Auto 0.03 X10*3/uL (0.00-0.03); Imm Gran Pct Auto 0.7 % (0.0-0.4); Lymphocytes Percent Auto 23.7 % (20-40); Mean Corpuscular Hemoglobin 31.6 pg (27.0-33.0); Mean Corpuscular Volume 95.9 fL (80-98); Monocytes Absolute Auto 0.3 X10*3/uL (0.1-1.2); Neutrophils Absolute Auto 2.9 X10*3/uL (2.0-8.3); Neutrophils Percent Auto 65.9 % (45-73); Red Blood Count 4.68 X10*6/uL (4.20-5.50); White Blood Count 4.4 X10*3/uL (4.8-10.8)
[2020-07-02 10:42] LABS: Alanine Aminotransferase 22 U/L (0-31); Albumin Level 4.6 g/dL (3.5-5.0); Alkaline Phosphatase 61 U/L (39-117); Anion Gap 11 (12-20); Aspartate Amino Transferase 20 U/L (5-31); Bilirubin Total 0.5 mg/dL (0.0-1.0); Blood Urea Nitrogen 13 mg/dL (9-16); Calcium 9.7 mg/dL (8.4-10.2); Carbon Dioxide 28 mmol/L (22-29); Chloride 104 mmol/L (96-108); Creatinine Clr Calc Pharmacy 99.2; Estimated Glomerular Filt Rate > 60; Glucose Random 72 mg/dL (60-115); Lactate Dehydrogenase 174 U/L (122-220); Potassium 4.3 mmol/L (3.3-5.1); Rheumatoid Factor < 15.0 IU/mL (<15.0); Sodium 139 mmol/L (135-145); Total Protein 7.3 g/dL (6.5-8.0)
[2020-07-02 11:00] LABS: Erythrocyte Sedimentation Rate 2 MM/HR (0-20)
[2020-07-02 12:27] LABS: SLIDE REVIEW VERIFIED
--- NOTE | 2020-07-02 16:18 | MHC.HEMONCMA ---
Called pcp office to request lab report for the last year.
[2020-07-04 14:02] LABS: Anti Nuclear Antibody Screen NEGATIVE (NEGATIVE)
[2020-07-05 08:16] LABS: HBsAGNum1 0.17 S/CO (0.00-0.99); Hepatitis B Surface Antigen Negative (Negative); ~HepC Num1 0.07 S/CO (0.00-0.79); ~Hepatitis C Antibody Nonreactive (Nonreactive)
[2020-07-05 08:33] LABS: HBS Num1 0.49 mIU/mL (0-7.99); HBc Num1 0.04 S/CO (0.00-0.79); HIV AB/AG Nonreactive (Nonreactive); HIV Num 1 0.09 S/CO (0.00-0.99); Hepatitis B Core Antibody Nonreactive (Nonreactive); ~Hepatitis B Surface Antibody NONREACTIVE (Nonreactive)
[2020-07-06 15:37] LABS: IgA 199 mg/dL (47-310); IgG 1096 mg/dL (600-1640); IgM 64 mg/dL (50-300)
[2020-07-30 09:09] VITALS: BP 107/68; PULSE 62; RESP 12; TEMP 36.6; O2SAT 99; BMI 24.3
--- NOTE | 2020-07-30 09:16 | P.PNHO_ITS ---
Medical Summary - Medical Summary Date of Service: 07/30/20 Chief complaint: F/U for: Thrombocytopenia. Medical Summary: DIAGNOSIS: Thrombocytopenia. Today's platelets: 186,000. Interval History Interval history: Madina Pedro is a pleasant 30 year old lady, here for a follow-up visit. She has been doing really well. Denies fatigability. ROS: She denies any easy bruising nor systemic bleeding. She does feel rather f atigued. She feels that she gets sick a lot. She denies any fever nor chills. Appetite is good. Her weight is stable. Sometimes she gets migraine headaches. Denies chest pain or trouble breathing. No cough nor sputum. She gets lower abdominal pain. No nausea vomiting nor heartburn. Bowels are working without any gross blood in it. She has increased frequency of micturition. She has lately felt pain in the right lower neck radiating into her upper arm for about 5 days. No other joint pain or muscle pain. Neurological: No complaints. Psychiatry: Depression. Dermatology: History of eczema. Previous history: She had a bad attack of shingles back in January. Subsequently she was noted to have a low platelet count. I do not have those results however, Her CBC from 06/08/2020: WBC 6.2, HGB 14, HCT 41.4, MCV 3 96.1, PLT 86. She mentions that she and her boyfriend had COVID 19 back in March. In January, she had really bad episode of shingles, involving her left back and leg. Denies any major past medical issues. No major surgeries. Family history: Mom had breast cancer. There is lung cancer diabetes and strokes on maternal side of the family. 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 She is dating. She has no children. Denies smoking. Drinks socially. Review of Systems - Constitutional Reports no additional constitutional complaints - Eyes Reports no additional eye complaints - ENT Reports no additional ear, nose, mouth, and throat complaints - Cardiovascular Reports no additional cardiovascular complaints - Respiratory Reports no additional respiratory complaints - Gastrointestinal Reports no additional gastrointestinal complaints - Genitourinary Reports no additional female genitourinary complaints - Musculoskeletal Reports no additional musculoskeletal complaints - Integumentary/Breasts Skin/Breast: Reports no additional skin complaints - Neurologic Reports no additional neurologic complaints - Psychiatric Reports no additional psychiatric complaints - Endocrine Reports no additional endocrine complaints - Hematologic/Lymphatic Reports no additional hematologic/lymphatic complaints - Allergic/Immunologic Reports no additional allergic/immunologic complaints [facility] Medical History: Medical History (Last Reviewed 07/30/20 @ 09:09 by Erica Mcclain) History of dysuria History of shingles History of urinary frequency Hx of acne Hx of acute cystitis Hx of eczema Hx of low back pain Hx of migraines Hx of thrombocytopenia Functional capacity: independent ambulation Patient : No Family History: Family History (Last Reviewed 07/30/20 @ 09:10 by Erica Mcclain) Mother Hx of breast cancer Hx of cancer of lung Maternal Grandfather History of heart attack Maternal Aunt History of heart attack History of diabetes mellitus Social History: Social History (Last Reviewed 07/30/20 @ 09:10 by Erica Mcclain) Alcohol History: Alcohol intake: current Alcohol History Details: Alcohol intake frequency: holiday/special occasion Alcohol type: wine Alcohol type: hard liquor Substance Use History: Use of substances other than those prescribed or required for medical reasons : No Nutrition Assessment: Patient : No Oncology Screenings - ECOG Performance Status ECOG Performance Status: 0 Home Medications and Allergies Home Medications Medication Instructions Recorded Confirmed Type hydrocortisone [Cortisone appl 07/02/20 07/02/20 History (hydrocortisone)] levonorgestrel [Mirena] INTRAUTERINE 07/02/20 07/02/20 History loratadine 10 mg PO DAILY 07/02/20 07/02/20 History Allergies Allergy/AdvReac Type Severity Reaction Status Date / Time Seasonal Allergies Allergy Mild Sneezing Verified 07/02/20 08:41 amoxicillin [AMOXICILLIN] Allergy Unknown HIVES Unverified 01/22/20 18:21 penicillin G [PENICILLIN G] Allergy Unknown HIVES Unverified 01/22/20 18:21 penicillin V Allergy Unknown hives Verified 01/20/19 00:00 Penicillins [PENICILLINS] Allergy Unknown RASH Unverified 01/22/20 18:21 Sulfa (Sulfonamide AdvReac Unknown vomiting Verified 01/20/19 00:00 Antibiotics) Exam Vital signs: Vital Signs Temp 98 F 07/30/20 09:09 Pulse 62 07/30/20 09:09 Resp 12 07/30/20 09:09 BP 107/68 07/30/20 09:09 Pulse Ox 99 07/30/20 09:09 Intake & Output 07/29/20 07/30/20 07/30/20 18:59 06:59 18:59 Other: Weight 64.3 kg Weight in Grams 38069 Weight 64.3 kg Body Mass Index 24.3 - Constitutional Present: no acute distress, mild distress - Routine HEENT Exam Head: Present: normal inspection Eye: Present: normal appearance ENT: Present: mucous membranes moist - Routine Neck Exam Present: full ROM - Routine Respiratory Exam Present: CTAB - Routine Cardiovascular Exam Cardiovascular: Present: RRR, S1, S2 - Routine Abdominal Exam Present: normal bowel sounds, nontender - Routine Rectal Exam Patient deferred: digital exam - Routine Extremities Exam Present: nontender - Routine Back/Spine/Pelvis Exam Back/Spine: Present: full ROM - Routine Skin Exam Present: intact - Routine Neurological Exam Present: alert, oriented X3 - Detailed Neurological Exam: Coma Scale Eye Opening: Spontaneous (4) - Routine Psychiatric Exam Present: normal affect Data - Labs CBC & Chem 7: 07/30/20 09:24 07/30/20 09:24 Labs: 07/02/20 09:45 MEGA Reflex Titer and Pattern Routine Complete Blood Count Auto Diff Routine Comprehensive Met. Panel Routine Erythrocyte Sedimentation Rate Routine HIV Ab/Ag Routine Hepatitis B,C Profile Routine Immunofixation Pnl, Serum Routine LDH [Lactate Dehydrogenase] Routine Rheumatoid Factor Routine SLIDE REVIEW Routine Laboratory Last Values WBC 4.4 X10*3/uL (4.8-10.8) L 07/02/20 09:45 RBC 4.68 X10*6/uL (4.20-5.50) 07/02/20 09:45 Hgb 14.8 g/dl (12.0-16.0) 07/02/20 09:45 Hct 44.9 % (37-47) 07/02/20 09:45 MCV 95.9 fL (80-98) 07/02/20 09:45 MCH 31.6 pg (27.0-33.0) 07/02/20 09:45 MCHC 33.0 g/dl (31.0-35.0) 07/02/20 09:45 RDW 11.9 % (11.0-16.0) 07/02/20 09:45 Plt Count TNP 07/02/20 09:45 MPV TNP 07/02/20 09:45 Immature Gran % (Auto) 0.7 % (0.0-0.4) H 07/02/20 09:45 Neut % (Auto) 65.9 % (45-73) 07/02/20 09:45 Lymph % (Auto) 23.7 % (20-40) 07/02/20 09:45 [place] % (Auto) 6.0 % (2-11) 07/02/20 09:45 Eos % (Auto) 2.8 % (0-4) 07/02/20 09:45 Baso % (Auto) 0.9 % (0-2) 07/02/20 09:45 Lymph # (Auto) 1.0 X10*3/uL (1.2-4.9) L 07/02/20 09:45 [place] # (Auto) 0.3 X10*3/uL (0.1-1.2) 07/02/20 09:45 Eos # (Auto) 0.1 X10*3/uL (0.0-0.4) 07/02/20 09:45 Baso # (Auto) 0.0 X10*3/uL (0.0-0.2) 07/02/20 09:45 Abs Immat Gran (auto) 0.03 X10*3/uL (0.00-0.03) 07/02/20 09:45 Absolute Neuts (auto) 2.9 X10*3/uL (2.0-8.3) 07/02/20 09:45 Absolute Nucleated RBC 0.000 X10*3/uL (0.0-0.012) 07/02/20 09:45 Nucleated RBC % (auto) 0.0 /100WBC (0.0-0.2) 07/02/20 09:45 Smear Tech's Comments VERIFIED 07/02/20 09:45 ESR 2 MM/HR (0-20) 07/02/20 09:45 Sodium 139 mmol/L (135-145) 07/02/20 09:45 Potassium 4.3 mmol/L (3.3-5.1) 07/02/20 09:45 Chloride 104 mmol/L (96-108) 07/02/20 09:45 Carbon Dioxide 28 mmol/L (22-29) 07/02/20 09:45 Anion Gap 11 (12-20) L 07/02/20 09:45 BUN 13 mg/dL (9-16) 07/02/20 09:45 Creatinine 0.80 mg/dL (0.5-1.4) 07/02/20 09:45 Estim Creat Clear Calc 99.2 07/02/20 09:45 Estimated GFR > 60 07/02/20 09:45 Random Glucose 72 mg/dL (60-115) 07/02/20 09:45 Calcium 9.7 mg/dL (8.4-10.2) 07/02/20 09:45 Total Bilirubin 0.5 mg/dL (0.0-1.0) 07/02/20 09:45 AST 20 U/L (5-31) 07/02/20 09:45 ALT 22 U/L (0-31) 07/02/20 09:45 Alkaline Phosphatase 61 U/L (39-117) 07/02/20 09:45 Lactate Dehydrogenase 174 U/L (122-220) 07/02/20 09:45 Total Protein 7.3 g/dL (6.5-8.0) 07/02/20 09:45 Albumin 4.6 g/dL (3.5-5.0) 07/02/20 09:45 IgG Total 1096 mg/dL (600-1640) 07/02/20 09:45 IgA Total 199 mg/dL (47-310) 07/02/20 09:45 IgM 64 mg/dL (50-300) 07/02/20 09:45 WILLIAM Interpretation SEE NOTE 07/02/20 09:45 Rheumatoid Factor < 15.0 IU/mL (<15.0) 07/02/20 09:45 MEGA Screen NEGATIVE (NEGATIVE) 07/02/20 09:45 MEGA Titer TNP 07/02/20 09:45 MEGA Titer 2 TNP 07/02/20 09:45 MEGA Titer 3 TNP 07/02/20 09:45 MEGA Pattern TNP 07/02/20 09:45 MEGA Pattern 2 TNP 07/02/20 09:45 MEGA Pattern 3 TNP 07/02/20 09:45 Hep Bs Antigen Negative (Negative) 07/02/20 09:45 Hep Bs Antibody NONREACTIVE (Nonreactive) 07/02/20 09:45 Hep B Core Total Ab Nonreactive (Nonreactive) 07/02/20 09:45 Hepatitis C Ab (EIA) Nonreactive (Nonreactive) 07/02/20 09:45 HIV 1&2 Ab/P24 Ag 4thGn Nonreactive (Nonreactive) 07/02/20 09:45 Progress Note: A/P (1) Thrombocytopenia Status: Acute Assessment and plan: This is a pleasant 30-year-old lady, with thrombocytopenia dating back to about 6 months according to her. She had labs drawn back in 2019 at that time her platelets were in the normal range. DIFFERENTIAL DIAGNOSIS: 1. INFECTION RELATED: 1. A viral infection: She did have herpes zoster infectio n back in January. Other possibilities include hepatitis versus HIV. 2. DRUG-INDUCED: She is not on any medication that could be implicated. 3. COLLAGEN VASCULAR DISORDER: Rheumatoid arthritis versus lupus. 4. ITP: This is most likely. 5. MYELO INFILTRATIVE DISORDER: Myelodysplastic syndrome, lymphoma or multiple myeloma: However no clinical features to suggest it. Her white count and demetra telets are normal. That is reassuring. I proceeded with further evaluation. l rechecked her CBC and a manual diff. Platelet clumps were noted. However the platelet count was still 144,000. Checked the hepatitis profile and HIV:WNL. Check RA and MEGA: Negative. Check LDH: 174 and an SIEP: WNL. She is doing very well. Her platelet count is actually normal today: 186,000. It was checked in a blue top tube to avoid effect of clumping, however that was 193,000 as well. PLAN: Will follow the platelet count over time. If it drops will consider a bone marrow exam for further evaluation. Will treat if the platelets drop below 50. In the meantime she was advised not to take aspirin and nonsteroidals. She will return in 3 months for a follow-up visit. Thank you, . Additional CC's: Suman Zaidi. - Time Spent With Patient Total time spent is greater than 50% in coordination of care (as documented) at patient's floor/unit and/or counseling patient: 25 - 35 minutes
[2020-07-30 09:25] LABS: MANUAL DIFF FLAG NO
[2020-07-30 09:45] LABS: Basophils Percent Auto 0.8 % (0-2); Eosinophils Absolute Auto 0.1 X10*3/uL (0.0-0.4); Eosinophils Percent Auto 3.3 % (0-4); Hematocrit 42.9 % (37-47); Hemoglobin 14.1 g/dl (12.0-16.0); Imm Gran Abs Auto 0.01 X10*3/uL (0.00-0.03); Imm Gran Pct Auto 0.3 % (0.0-0.4); Lymphocytes Percent Auto 24.8 % (20-40); Mean Corpuscular HGB Conc 32.9 g/dl (31.0-35.0); Mean Corpuscular Hemoglobin 31.7 pg (27.0-33.0); Mean Corpuscular Volume 96.4 fL (80-98); Mean Platelet Volume 10.8 fL (9.4-12.3); Monocytes Absolute Auto 0.3 X10*3/uL (0.1-1.2); Monocytes Percent Auto 7.2 % (2-11); Neutrophils Absolute Auto 2.5 X10*3/uL (2.0-8.3); Neutrophils Percent Auto 63.6 % (45-73); Platelet Count 186 X10*3/uL (160-400); Red Blood Count 4.45 X10*6/uL (4.20-5.50); Red Cell Distribution Width 11.8 % (11.0-16.0); White Blood Count 3.9 X10*3/uL (4.8-10.8)
[2020-07-30 09:51] LABS: Platelet Count (Citrate) 193 X10*3/uL (150-310)
[2020-07-30 10:06] LABS: Alanine Aminotransferase 12 U/L (0-31); Albumin Level 4.2 g/dL (3.5-5.0); Alkaline Phosphatase 54 U/L (39-117); Anion Gap 13 (12-20); Aspartate Amino Transferase 17 U/L (5-31); Bilirubin Total 0.6 mg/dL (0.0-1.0); Blood Urea Nitrogen 9 mg/dL (9-16); Carbon Dioxide 26 mmol/L (22-29); Chloride 106 mmol/L (96-108); Creatinine Clr Calc Pharmacy 95.1; Estimated Glomerular Filt Rate > 60; Glucose Random 83 mg/dL (60-115); Potassium 4.4 mmol/L (3.3-5.1); Sodium 141 mmol/L (135-145); Total Protein 6.6 g/dL (6.5-8.0)
--- NOTE | 2020-07-30 10:39 | MHC.HEMONCMA ---
Pt presents to f/u on thombocytopenia. History reviewed and labs drawn. Pt to return in a months.
== END | disposition home or self-care (01) ==
LOC: HO.ONC 07-02 09:01
PROVIDERS: PCP Internal Medicine; Referring Provider Internal Medicine; Visit Provider Internal Medicine Medical Oncology
DX: D69.6 Thrombocytopenia, unspecified (principal)
CPT/HCPCS: 36415; 80053; 82784; 83615; 85025; 85652; 86038; 86039; 86334; 86431; 86704; 86706; 86803; 87340; 87389; 99204; 99214

== ENCOUNTER 2024-01-15 08:21 | Outpatient (REF) | payer OTHER, SELFPAY ==
[2024-01-15 14:05] LABS: MANUAL DIFF FLAG NO
[2024-01-15 14:25] LABS: Basophils Percent Auto 0.4 % (0-2); Eosinophils Absolute Auto 0.1 X10*3/uL (0.0-0.4); Eosinophils Percent Auto 2.6 % (0-4); Hematocrit 41.4 % (37.0-47.0); Hemoglobin 14.4 g/dl (12.0-16.0); Imm Gran Abs Auto 0.01 X10*3/uL (0.00-0.03); Imm Gran Pct Auto 0.2 % (0.0-0.4); Lymphocytes Absolute Auto 1.3 X10*3/uL (1.2-4.9); Lymphocytes Percent Auto 27.7 % (20-40); Mean Corpuscular HGB Conc 34.8 g/dl (31.0-35.0); Mean Corpuscular Hemoglobin 32.2 pg (27.0-33.0); Mean Corpuscular Volume 92.6 fL (80.0-98.0); Monocytes Absolute Auto 0.3 X10*3/uL (0.1-1.2); Monocytes Percent Auto 5.5 % (2-11); Neutrophils Percent Auto 63.6 % (45-73); Platelet Count 203 X10*3/uL (160-400); Red Blood Count 4.47 X10*6/uL (4.20-5.50); Red Cell Distribution Width 11.9 % (11.0-16.0); White Blood Count 4.7 X10*3/uL (4.8-10.8)
[2024-01-15 14:41] LABS: Alanine Aminotransferase 20 U/L (0-31); Albumin Level 4.5 g/dL (3.5-5.0); Alkaline Phosphatase 57 U/L (39-117); Anion Gap 12 (12-20); Aspartate Amino Transferase 19 U/L (5-31); Bilirubin Total 0.6 mg/dL (0.0-1.0); Blood Urea Nitrogen 11 mg/dL (9-16); Calcium 9.5 mg/dL (8.4-10.2); Carbon Dioxide 26 mmol/L (22-29); Chloride 105 mmol/L (96-108); Estimated Glomerular Filt Rate > 60; Glucose Random 72 mg/dL (60-115); Iron 166 mcg/dL (30-160); Percent Iron Saturation 60 % (15-50); Potassium 3.5 mmol/L (3.3-5.1); Sodium 139 mmol/L (135-145); Total Iron Binding Capacity 275 mcg/dL (228-428); Total Protein 7.5 g/dL (6.5-8.0); Unsaturated Iron Binding 109 ug/dL
[2024-01-15 14:57] LABS: TSH reflex Free T4 1.29 uIU/mL (0.32-4.0); Vitamin D 25-OH Total 72.3 ng/mL (>30)
[2024-01-15 15:02] LABS: Folate 17.7 ng/mL (> or = 4.0); Vitamin B12 697 pg/mL (200-900)
== END 2024-01-15 08:22 | disposition home or self-care (01) ==
LOC: HO.CHCLDS 08:21
PROVIDERS: Visit Provider Internal Medicine
DX: R53.83 Other fatigue (principal)
CPT/HCPCS: 36415; 80053; 82306; 82607; 82746; 83540; 84443; 85025

== ENCOUNTER 2024-01-19 16:49 | Emergency (ER) | payer OTHER, SELFPAY ==
--- NOTE | ~2024-01-19 | CT_ITS ---
EXAMINATION: CT HEAD WITHOUT CONTRAST CT CERVICAL SPINE WITHOUT CONTRAST CLINICAL INFORMATION: Fall. EtOH. Altered mental status. Neck trauma. COMPARISON: None available. TECHNIQUE: Contiguous axial imaging was performed from the skull base to vertex without intravenous administration of contrast. Contiguous axial imaging was performed from the upper chest through the skull base without intravenous administration of contrast. Coronal and sagittal reformats were obtained at the acquisition workstation. This CT examination was performed using dose optimization techniques as appropriate, variously including the following: *Automated exposure control. *Adjustment of mA and/or kV according to patient size (this includes techniques or standardized protocols for targeted exams where dose is matched to indication/reason for exam; i.e. extremities or head). *Use of iterative reconstruction technique. DLP: 895 mGy-cm FINDINGS: Head: There is no evidence of acute intracranial hemorrhage or edematous territorial infarction. Nguyen-white matter differentiation is preserved. There is no abnormal attenuation within the brain parenchyma. The ventricles are normal in morphology and size. No evidence for obstructive hydrocephalus. No abnormal mass effect or midline shift. No extra-axial fluid collections. No acute soft tissue or osseous abnormalities. The mastoid air cells and visualized paranasal sinuses are clear. Cervical Spine: The atlantooccipital and atlantoaxial articulations remain well aligned. Mild reversal of the normal cervical lordosis centered on C4-C5. Otherwise, there is anatomic alignment of the vertebral bodies and posterior elements. No evidence of acute fracture or subluxation. The vertebral body heights and disc spaces are maintained. There is no prevertebral soft tissue swelling. There is a 0.5 cm hypoattenuating nodule within the right thyroid lobe (no follow-up imaging recommended based on current guidelines at the time of examination). The remaining cervical soft tissues are within normal limits. The lung apices demonstrate no abnormalities. CT/CT cervical spine wo IV con IMPRESSION: 1. No evidence of acute intracranial hemorrhage or edematous territorial infarction. 2. No evidence of acute fracture or traumatic subluxation of the cervical spine. Electronically signed by: Grayson Mir DO 01/19/2024 08:19 PM EDT
--- NOTE | ~2024-01-19 | CT_ITS ---
EXAMINATION: CT CHEST, ABDOMEN AND PELVIS WITH CONTRAST CLINICAL INFORMATION: Chest trauma COMPARISON: CT abdomen and pelvis 04/07/2023 TECHNIQUE: Multidetector volumetric imaging was performed from the thoracic inlet through the pubic symphysis following administration of 85 mL Omnipaque 350. Sagittal and coronal reformatted images were obtained on the technologist's workstation. This CT examination was performed using dose optimization techniques as appropriate, variously including the following: *Automated exposure control *Adjustment of mA and/or kV according to patient size (this includes techniques or standardized protocols for targeted exams where dose is matched to indication/reason for exam; i.e. extremities or head) *Use of iterative reconstruction technique DLP: 196 mGy-cm FINDINGS: CHEST: Lung: The lungs are clear without focal opacity or nodule. Mediastinum: The mediastinum is normal. Some residual thymic tissue is present in the anterior mediastinum. The central vascular structures are unremarkable. No hilar or mediastinal lymphadenopathy. Coronary Artery Calcium: None Pericardium/Pleura: No significant effusion. No pleural mass or thickening. Chest Wall/Axilla: Unremarkable ABDOMEN/PELVIS: Peritoneal Space: No significant free air or free fluid identified. Liver, Gallbladder, Biliary Tree: The liver is normal in size, shape, and attenuation. No focal hepatic lesion or biliary ductal dilatation is present. The gallbladder is unremarkable with no evidence of radiopaque gallstones, gallbladder wall thickening, or obvious pericholecystic inflammatory changes. Pancreas: Unremarkable Spleen: Unremarkable Adrenal Glands: Unremarkable Kidneys and Ureters: The kidneys are normal in size, shape, and attenuation. No hydronephrosis, hydroureter, or calculi seen. No perinephric stranding. Bladder: Unremarkable Gastrointestinal Tract: The small and large bowel are unremarkable. The appendix is unremarkable. Abdominal Wall: No significant hernia is appreciated. Lymph Nodes: No lymphadenopathy. Vascular: The aorta appears normal.. The IVC appears unremarkable. PELVIC VISCERA: The anteverted uterus and adnexa are unremarkable. No free fluid present in the cul-de-sac. OSSEUS STRUCTURES: No degenerative changes are noted in the spine. No bony destructive lesions are seen. No fractures are seen. CT/CT abdomen pelvis w IV con IMPRESSION: No evidence of a traumatic injury in the chest abdomen or pelvis. Fleischner guidelines were followed. Electronically signed by: Janak Ferreira MD 01/19/2024 10:54 PM EDT RP
[2024-01-19 16:53] VITALS: BP 131/88; PULSE 92; O2SAT 98
[2024-01-19 16:54] VITALS: BP 109/74; PULSE 105; RESP 18; TEMP 36.4; O2SAT 99; BMI 27.5
--- NOTE | 2024-01-19 16:58 | ED.GENADULT ---
HPI - General Adult General Chief complaint: ETOH/Substance Use Stated complaint: ETOH, drank 3 bottles of wine Time Seen by Provider: 01/19/24 16:50 Source: patient and EMS Mode of arrival: EMS Limitations: altered mental status and other (acute alcohol intoxication ) History of Present Illness ED Provider: Serjio NICOLE HPI narrative: This is a 33-year-old female history of infertility, thrombocytopenia presenting to the emergency department with acute alcohol intoxication she is coming in by ambulance EMS states patient 1 point reported she had 3 bottles of wine today, when patient comes in she just tells me she had a lot to drink and says I had a bad day . She tells me that she is currently going through a miscarriage she is currently doing IVF, IVF is following this miscarriage. She reports mild vaginal bleeding has been going on for the past few days. She is very intoxicated and a poor historian very difficult to get answers out of this patient. Not suicidal or homicidal. History is limited due to alcohol intoxication as well as review of systems. Related Data Home Medications ?Medication ?Instructions ?Recorded ?Confirmed hydrocortisone 1 % topical cream appl 07/02/20 07/02/20 (Cortisone (hydrocortisone)) loratadine 10 mg tablet 10 mg PO DAILY 07/02/20 07/02/20 omeprazole 20 mg capsule,delayed 20 mg PO DAILY 08/11/22 08/11/22 release sertraline 50 mg tablet 50 mg PO DAILY 08/11/22 08/11/22 Allergies Allergy/AdvReac Type Severity Reaction Status Date / Time Seasonal Allergies Allergy Mild Sneezing Verified 01/19/24 17:00 amoxicillin [AMOXICILLIN] Allergy Unknown HIVES Verified 01/17/23 13:55 penicillin G [PENICILLIN G] Allergy Unknown HIVES Verified 01/17/23 13:55 penicillin V Allergy Unknown hives Verified 01/17/23 13:55 Penicillins [PENICILLINS] Allergy Unknown RASH Verified 01/17/23 13:55 Sulfa (Sulfonamide AdvReac Unknown vomiting Verified 01/17/23 13:55 Antibiotics) Review of Systems Review of Systems: Yes all other systems are reviewed and are negative PMFSH Past Medical History Attestation statement: The following information was validated with the patient. Source: old records reviewed and nursing notes reviewed Medical History History of shingles Hx of thrombocytopenia Hx of low back pain History of dysuria Hx of acne History of urinary frequency Hx of acute cystitis Hx of migraines Hx of eczema Surgical History Hx of hand surgery Family History Family History Mother Hx of breast cancer Hx of cancer of lung Maternal Grandfather History of heart attack Maternal Aunt History of heart attack History of diabetes mellitus Social History Social History Household Members Other:: fiance Housing: Apartment Alcohol intake: current Alcohol intake frequency: holidays/special occasions only Alcohol type: wine and hard liquor Patient Tobacco Use Status: Never used Tobacco Smoked in Last 30 Days: No Use of substances other than those prescribed or required for medical reasons: No Advance Directives: No Advance Directives Information Provided: No Current occupational status: employed 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 Oriented X3.? No acute distress.? Head: Normocephalic, atraumatic, no step-offs or deformities Eyes: Pupils equal, round and reactive to light. Neck: Normal inspection.? Neck supple.? CVS: Normal heart rate and rhythm.? Pulses normal.? Respiratory: No respiratory distress.? Breath sounds normal.? Abdomen: Soft and nontender.? Skin: Skin warm and dry.? + Pale skin color.? Normal skin turgor.? Extremities: No lower extremity edema.? No calf ttp. 5/5 strength to bilateral upper and lower extremities Neuro: Oriented X 3.? No motor deficit.? No sensory deficit. CN 2-12 intact Course Reevaluation(s) Reevaluation #1: Spoke to [place] [facility] director surface transportation attending who states that patient had an embryo transfer January 03, 2024 ( w/ naturual cycle), 1st HCG last Sunday 5 , 2 days later ( sunday) HCG was negative at 1. Patient should not be at this time per IVF she may just be on her menses. She was given an HCG trigger shot which could have been the reason her HCG was 5 or it could have been from a very early biomedical that has now resolved. Patient is schedule to see IVF next week the . Time: 17:29 Reevaluation #2: CBC unremarkable. Chemistry no acute findings meeting intervention. Beta hCG negative. Urine toxicology negative. Ethanol 154. Patient now ambulatory and looks a lot better. Imaging pending. Time: 20:22 Reevaluation #3: CT of the head no acute intracranial hemorrhage or edematous territorial infarction no evidence of acute fracture traumatic subluxation of the cervical spine. CT chest no evidence of traumatic injury and chest, abdomen or pelvis. Patient to be discharged home she feels safe at home. Not SI or HI. Higher significant other at the bedside will go home with her. Educated patient on diagnosis and treatment plan, answered all question, patient verbalizes understanding. At this time patient will be discharged home, advised to return with new or worsening symptoms. Educated on worrisome signs and symptoms and when to return. At this time I feel comfortable discharge home. Time: 22:59 Medications Administered Discontinued Medications Generic Name Dose Route Start Last Admin Trade Name Jezq PRN Reason Stop Dose Admin Sodium Chloride 1,000 mls @ 999 mls/hr 01/19/24 17:00 01/19/24 18:17 Ns IV 01/19/24 18:00 Infused .Q1H1M GIOVANNA Infusion Iohexol 85 ml 01/19/24 19:06 01/19/24 19:07 Iohexol 350 Mg/Ml 100 Ml Infus..Btl IV 01/19/24 19:07 85 ml ONCE ONE Administration Ondansetron HCl 4 mg 01/19/24 16:52 01/19/24 17:15 Ondansetron Hcl 4 Mg/2 Ml Vial IVPUSH 01/19/24 16:53 4 mg ONCE ONE Administration Medical Decision Making Medical Decision Making [facility] Narrative: 1700 33-year-old female presents with acute alcohol intoxication also reporting that she is currently miscarrying ( thinks shes 4-5 weeks) , she is currently being followed by [facility]. Physical exam patient appears pale, smells like alcohol, difficult to arouse however arousable to verbal stimuli. History and physical exam concerning for acute alcohol intoxication and miscarriage. Will rule out metabolic derangements, anemia. Will rule out polysubstance abuse. Plan labs, imaging, will reach out to [facility] oncall Differential Diagnosis Differential Diagnoses: The differential diagnosis associated with the presentation includes History and physical exam concerning for acute alcohol intoxication and miscarriage. Will rule out metabolic derangements, anemia. Will rule out polysubstance abuse. Admission/Observation Consideration of admission/observation: Escalation of care including admission/observation considered Lab Data MDM Lab Attestation statement: I reviewed the patient's lab results. 01/19/24 17:11 01/19/24 17:11 Labs: Lab Results 01/19/24 01/19/24 Range/Units 17:11 18:28 WBC 7.4 (4.8-10.8) X10*3/uL RBC 4.33 (4.20-5.50) X10*6/uL Hgb 13.7 (12.0-16.0) g/dl Hct 39.7 (37.0-47.0) % MCV 91.7 (80.0-98.0) fL MCH 31.6 (27.0-33.0) pg MCHC 34.5 (31.0-35.0) g/dl RDW 11.7 (11.0-16.0) % Plt Count Not Reportable MPV 12.3 (9.4-12.3) fL Immature Gran % (Auto) 0.3 (0.0-0.4) % Neut % (Auto) 66.8 (45-73) % Lymph % (Auto) 27.1 (20-40) % Roosevelt % (Auto) 4.2 (2-11) % Eos % (Auto) 1.1 (0-4) % Baso % (Auto) 0.5 (0-2) % Lymph # (Auto) 2.0 (1.2-4.9) X10*3/uL Roosevelt # (Auto) 0.3 (0.1-1.2) X10*3/uL Eos # (Auto) 0.1 (0.0-0.4) X10*3/uL Baso # (Auto) 0.0 (0.0-0.2) X10*3/uL Abs Immat Gran (auto) 0.02 (0.00-0.03) X10*3/uL Absolute Neuts (auto) 4.9 (2.0-8.3) x10*3/uL Absolute Nucleated RBC 0.000 (0.0-0.012) X10*3/uL Nucleated RBC % (auto) 0.0 (0.0-0.2) /100WBC Smear Tech's Comments VERIFIED Sodium 144 (135-145) mmol/L Potassium 4.0 (3.3-5.1) mmol/L Chloride 111 H (96-108) mmol/L Carbon Dioxide 22 (22-29) mmol/L Anion Gap 15 (12-20) BUN 10 (9-16) mg/dL Creatinine 0.84 (0.5-1.4) mg/dL Estim Creat Clear Calc 94.7 Estimated GFR > 60 Random Glucose 135 H (60-115) mg/dL Calcium 9.5 (8.4-10.2) mg/dL Magnesium 2.3 (1.6-2.6) mg/dL Total Bilirubin 0.3 (0.0-1.0) mg/dL AST 34 H (5-31) U/L ALT 24 (0-31) U/L Alkaline Phosphatase 60 (39-117) U/L Total Creatine Kinase 133 (26-140) U/L Total Protein 7.9 (6.5-8.0) g/dL Albumin 4.5 (3.5-5.0) g/dL Lipase 26 (8-78) U/L Beta HCG, Quant < 2 mIU/mL Urine Opiates Screen Not Detected (Not Detect) Ur Buprenorphine Scrn Not Detected (Not Detect) ng/mL Ur Oxycodone Screen Not Detected (Not Detect) ng/mL Urine Methadone Screen Not Detected (Not Detect) ng/mL Urine Fentanyl Screen Not Detected (Not Detect) Ur Barbiturates Screen Not Detected (Not Detect) Ur Phencyclidine Scrn Not Detected (Not Detect) Ur Amphetamines Screen Not Detected (Not Detect) U Benzodiazepines Scrn Not Detected (Not Detect) Urine Cocaine Screen Not Detected (Not Detect) U Marijuana (THC) Screen Not Detected (Not Detect) Ethyl Alcohol 154 mg/dL Independent Interpretation I performed an independent interpretation of an: CT Scan (CT/CT head/brain wo IV con IMPRESSION: 1. No evidence of acute intracranial hemorrhage or edematous territorial infarction. 2. No evidence of acute fracture or traumatic subluxation of the cervical spine.) Critical Care Time Critical Care Time Critical Care Time: No Discharge Plan Discharge Clinical Impression: Alcoholic intoxication, Nausea & vomiting Patient Disposition: Home, Self-Care Instructions: Alcohol Intoxication (ED) Additional Instructions: Take your medications as prescribed. If you were prescribed antibiotics today, it is important that you take your medication to their entirety, do not skip any doses, do not finish them early. Follow-up with your primary care provider this week. Return to the emergency department with new or worsening symptoms. Such as fevers, chills, chest pain, shortness of breath, nausea, vomiting, dizziness, headache, vision changes, lethargy In case of emergency call 911 Please follow-up with [facility]. Prescriptions: No Action loratadine 10 mg Tablet 10 mg PO DAILY hydrocortisone [Cortisone (hydrocortisone)] 1 % Cream omeprazole 20 mg Capsule,Delayed Release(Dr/Ec) 20 mg PO DAILY sertraline 50 mg tablet 50 mg PO DAILY Referrals: Suman Daugherty MD [Primary Care Provider] - 2 days Print Language: Portuguese
[2024-01-19] MEDS: 0.9 % Sodium Chloride 1,000 ML 999 ML IV (17:15)
[2024-01-19] MEDS: ondansetron HCL 4 MG/2 ML VIAL IVPUSH (17:15)
--- NOTE | 2024-01-19 17:20 | PC.NURSE ---
Pt presents to ED via EMS from home, called for EMS, pt was found on floor in bathroom. Per pt, she is going through a hard time, currently experiencing a miscarriage, 3 days of bleeding and is being followed by [facility]. Pt reports she drank 3 bottles of wine today due to having a tough time. Alert and oriented, tearful. Breathing even and unlabored, skin pale and clammy. Pt having episodes of vomiting. Reports lower ABD cramping, intermittent, 5/10.
[2024-01-19 17:37] LABS: Basophils Percent Auto 0.5 % (0-2); Eosinophils Absolute Auto 0.1 X10*3/uL (0.0-0.4); Eosinophils Percent Auto 1.1 % (0-4); Hematocrit 39.7 % (37.0-47.0); Hemoglobin 13.7 g/dl (12.0-16.0); Imm Gran Abs Auto 0.02 X10*3/uL (0.00-0.03); Imm Gran Pct Auto 0.3 % (0.0-0.4); Lymphocytes Percent Auto 27.1 % (20-40); MANUAL DIFF FLAG SCAN; Mean Corpuscular HGB Conc 34.5 g/dl (31.0-35.0); Mean Corpuscular Hemoglobin 31.6 pg (27.0-33.0); Mean Corpuscular Volume 91.7 fL (80.0-98.0); Mean Platelet Volume 12.3 fL (9.4-12.3); Monocytes Absolute Auto 0.3 X10*3/uL (0.1-1.2); Monocytes Percent Auto 4.2 % (2-11); Neutrophils Absolute Auto 4.9 x10*3/uL (2.0-8.3); Neutrophils Percent Auto 66.8 % (45-73); PLT CLUMP 1; Red Blood Count 4.33 X10*6/uL (4.20-5.50); Red Cell Distribution Width 11.7 % (11.0-16.0); SCAN SMEAR FLAG 1
[2024-01-19 17:40] LABS: White Blood Count 7.4 X10*3/uL (4.8-10.8)
[2024-01-19 17:41] LABS: SLIDE REVIEW VERIFIED
[2024-01-19 17:46] LABS: Alanine Aminotransferase 24 U/L (0-31); Albumin Level 4.5 g/dL (3.5-5.0); Alkaline Phosphatase 60 U/L (39-117); Anion Gap 15 (12-20); Aspartate Amino Transferase 34 U/L (5-31); Bilirubin Total 0.3 mg/dL (0.0-1.0); Blood Urea Nitrogen 10 mg/dL (9-16); Calcium 9.5 mg/dL (8.4-10.2); Carbon Dioxide 22 mmol/L (22-29); Chloride 111 mmol/L (96-108); Creatinine Clr Calc Pharmacy 94.7; Estimated Glomerular Filt Rate > 60; Ethanol 154 mg/dL; Glucose Random 135 mg/dL (60-115); HCG Quantitative < 2 mIU/mL; Lipase 26 U/L (8-78); Magnesium 2.3 mg/dL (1.6-2.6); Sodium 144 mmol/L (135-145); Total Protein 7.9 g/dL (6.5-8.0)
[2024-01-19 18:49] LABS: Amphetamine Screen Urine Not Detected (Not Detect); Barbiturates, Urine Not Detected (Not Detect); Benzodiazepines Screen Urine Not Detected (Not Detect); Buprenorphine Scr Not Detected (Not Detect); Cannabinoid Screen Urine Not Detected (Not Detect); Cocaine Screen Urine Not Detected (Not Detect); Fentanyl, urine Not Detected (Not Detect); Methadone Screen, Urine Not Detected (Not Detect); Opiate Screen Urine Not Detected (Not Detect); Oxycodone Screen Urine Not Detected (Not Detect); Phencyclidine Screen Urine Not Detected (Not Detect)
[2024-01-19] MEDS: iohexoL 350 MG/ML 100 ML INFUS..BTL 85 ML IV (19:07)
[2024-01-19 19:16] VITALS: BP 112/72; PULSE 102; RESP 16; TEMP 36.7; O2SAT 99
[2024-01-19 23:07] VITALS: BP 113/73; PULSE 91; RESP 16; TEMP 36.3; O2SAT 97
[2024-01-19 23:08] VITALS: BP 113/73; PULSE 91; RESP 16; TEMP 36.3; O2SAT 97
== END 2024-01-19 23:10 | disposition home or self-care (01) ==
PROVIDERS: Physician Assistant; Emergency Provider Emergency Medicine Emergency Medical Services; PCP Internal Medicine
DX: F10.120 Alcohol abuse with intoxication, uncomplicated (principal); Y90.6 Blood alcohol level of 120-199 mg/100 ml; R11.2 Nausea with vomiting, unspecified; Z79.899 Other long term (current) drug therapy
CPT/HCPCS: 36415; 70450; 71260; 72125; 74177; 80053; 80307; 82550; 83690; 83735; 84702; 85025; 96361; 96374; 99284; J2405; Q9967

== ENCOUNTER 2024-02-25 15:12 | Outpatient (AMB) | payer OTHER, SELFPAY ==
[2024-02-25 15:34] VITALS: BMI 27.2
--- NOTE | 2024-02-25 15:34 | MHC.OFFVIS ---
Vital Signs 02/25/24 15:34 Height 5 ft 4 in Weight 158 lb 11.725 oz BMI 27.2 Intake Visit Reasons: Vaginal discomfort Lead Auditor Required: No Information Interpreted: non-clinical & clinical [employer]: [employer] Present (Veronica Jeff MONICA) Accompanied by: Self / Same As Patient Allergies Seasonal Allergies Allergy (Mild, Verified 02/25/24 15:35) Sneezing amoxicillin [AMOXICILLIN] Allergy (Unknown, Verified 02/25/24 15:35) HIVES penicillin G [PENICILLIN G] Allergy (Unknown, Verified 02/25/24 15:35) HIVES penicillin V Allergy (Unknown, Verified 02/25/24 15:35) hives Penicillins [PENICILLINS] Allergy (Unknown, Verified 02/25/24 15:35) RASH Sulfa (Sulfonamide Antibiotics) Adverse Reaction (Unknown, Verified 02/25/24 15:35) vomiting Is last menstrual period known: Yes Last menstrual period: 02/06/24 HPI Comments Details: Presenting complaining of vulvovaginal burning and irritation no associated vaginal discharge or foul odor ; the patient was treated with terconazole vaginal cream and symptoms has persisted PFSH Medical History History of shingles Hx of thrombocytopenia Hx of low back pain History of dysuria Hx of acne History of urinary frequency Hx of acute cystitis Hx of migraines Hx of eczema Surgical History Hx of hand surgery Family History Mother Hx of breast cancer Hx of cancer of lung Maternal Grandfather History of heart attack Maternal Aunt History of heart attack History of diabetes mellitus Social History Household Members Other:: fiance Housing: Apartment Alcohol intake: current Alcohol intake frequency: holidays/special occasions only Alcohol type: wine and hard liquor Patient Tobacco Use Status: Never used Tobacco Current occupational status: employed 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 Sexual orientation: Straight/Heterosexual Gender identity: Female Female Reproductive History Menstrual Age of Menarche: 16 Date of last menstrual period: 02/06/24 Review of Systems Const All systems reviewed & are unremarkable except as noted in HPI and below Physical Exam Vital Signs: BMI result Body Mass Index 27.2 General: Yes no CVA tenderness External Female Exam: normal external appearance and normal appearance of the urethra Speculum Exam - Vagina: normal appearance of the vagina, normal palpation, no lesions and no masses Speculum Exam - Cervix: normal appearance of the cervix, normal palpation, no lesions, no masses and nontender Bimanual exam- vagina & uterus: normal bimanual exam, normal palpation, uterine size normal, normal palpation, uterine shape normal, No Cervical tenderness present and non-tender Bimanual Exam- Adnexa, other: normal adnexae Back/Spine/Pelvis Back: no CVA tenderness Assessment & Plan Assessment & Plan (1) Vulvovaginitis: Code(s): N76.0 - Acute vaginitis Category: Medical Plan: GC/CT with BV panel collected. Will check the results and treat accordingly since the patient is undergoing an IVF treatment in 10 days, will treat if positive finding with vaginal cream either terconazole or Metrogel. All questions answered, the patient verbalized understanding Coding Level of Care Code Est Pt Level 3 (76944) Diagnoses Vulvovaginitis N76.0
== END 2024-02-25 15:59 | disposition home or self-care (01) ==
PROVIDERS: PCP Internal Medicine; Visit Provider Obstetrics & Gynecology
DX: N76.0 Acute vaginitis (principal)
CPT/HCPCS: 99213

== ENCOUNTER 2024-02-25 15:12 | Outpatient (REF) | payer OTHER, SELFPAY | END 2024-02-25 15:13 | disposition home or self-care (01) | LOC: HO.LNP 15:12 | PROVIDERS: PCP Internal Medicine; Visit Provider Obstetrics & Gynecology | DX: N76.0 Acute vaginitis (principal) | CPT/HCPCS: 99212 ==

== ENCOUNTER 2024-02-26 10:27 | Outpatient (REF) | payer OTHER, SELFPAY ==
[2024-02-26 12:26] LABS: Iron 111 mcg/dL (30-160); Percent Iron Saturation 41 % (15-50); Total Iron Binding Capacity 269 mcg/dL (228-428); Unsaturated Iron Binding 158 ug/dL
[2024-02-27 13:42] LABS: CT PCR NOT DETECTED (Not Detect.); NG PCR NOT DETECTED (Not Detect.)
[2024-02-27 14:49] LABS: Bacterial Vaginosis PCR NEGATIVE (Negative); Candida Group PCR NOT DETECTED (Not Detect); Candida glab krusei PCR NOT DETECTED (Not Detect); Trichomonas vaginalis PCR NOT DETECTED (Not Detect)
== END 2024-02-26 10:28 | disposition home or self-care (01) ==
LOC: HO.LAB 10:27
PROVIDERS: Obstetrics & Gynecology; PCP Internal Medicine; Visit Provider Internal Medicine
DX: E83.10 Disorder of iron metabolism, unspecified (principal); N76.0 Acute vaginitis
CPT/HCPCS: 0352U; 36415; 83540; 87491; 87591